=== PATIENT | male | born 1965 | race Caucasian/White ===

== ENCOUNTER 2019-03-14 08:19 | Outpatient (CLI) | payer OTHER ==
[~2019-03-14] VITALS: Ht 180.3 cm; Wt 108.9 kg
[2019-03-14] VITALS (17 sets, daily range): BP systolic 113–166; BP diastolic 66–98
[2019-03-14] MEDS ORDERED: LISI10TA2 PO (08:37)
[2019-03-14] MEDS ORDERED: ROPI0.5T PO (08:37)
[2019-03-14 08:44] LABS: BASO # 0.1 x10^3/uL (0.0-0.2); BASO % 1 % (0-3); EOS # 0.3 x10^3/uL (0.0-0.7); EOS % 5 % (0-3); HEMATOCRIT 50.9 % (39.0-53.0); HEMOGLOBIN 17.3 g/dL (13.0-17.5); LYMPH # 1.4 x10^3/uL (1.0-4.8); LYMPH % 22 % (24-48); MEAN CORPUSCULAR HEMOGLOBIN 31 pg (25-35); MEAN CORPUSCULAR HGB CONC 34 g/dL (31-37); MEAN CORPUSCULAR VOLUME 90 fL (79-100); MONO # 0.5 x10^3/uL (0.0-1.1); MONO % 8 % (0-9); NEUT # 4.3 x10^3uL (1.8-7.7); NEUT % 65 % (31-73); PLATELET COUNT 181 x10^3/uL (140-400); RED BLOOD COUNT 5.65 x10^6/uL (4.30-5.70); RED CELL DISTRIBUTION WIDTH 13.7 % (11.5-14.5); WHITE BLOOD COUNT 6.6 x10^3/uL (4.0-11.0)
[2019-03-14 08:54] LABS: PROTHROMBIN TIME PATIENT 12.6 SEC (11.7-14.0)
[2019-03-14] MEDS ORDERED: GELATIN SPONGE SIZE 12-7MM SPONGE. ONE (09:07)
[2019-03-14] MEDS ORDERED: LIDOCAINE WITH 8.4% SOD BICARB 3 ML DISP.SYRIN. ONE (09:07)
[2019-03-14] MEDS ORDERED: fentaNYL PF VIAL 100 MCG/2 ML VIAL ONE (09:22)
[2019-03-14] MEDS ORDERED: MIDAZOLAM HCL/PF 2 MG/2 ML VIAL. ONE (09:22)
[2019-03-14] MEDS ORDERED: MIDAZOLAM HCL/PF 2 MG/2 ML VIAL. IV ONE (09:45)
[2019-03-14] MEDS ORDERED: LIDOCAINE WITH 8.4% SOD BICARB 3 ML DISP.SYRIN. IJ ONE (09:45)
[2019-03-14] MEDS ORDERED: fentaNYL PF VIAL 100 MCG/2 ML VIAL IV ONE (09:45)
--- NOTE | 2019-03-14 09:56 | RAD ---
CT-guided left kidney biopsy. 03/14/2019 9:50 AM Indication: MICROSCOPIC HEMATURIA Discussion: The risks and benefits of the procedure, including but not limited to, bleeding and infection were discussed patient. Informed consent was obtained. The patient was brought to the CT scanner and placed in the prone position. A timeout procedure was performed. 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 The overlying soft tissues were prepped and draped using maximum sterile barrier technique. 1% lidocaine without epinephrine was administered for local anesthesia. Under intermittent CT guidance, 17-gauge needle was advanced into the posterior lateral left kidney. 2 18-gauge core samples were obtained and divided amongst formalin and Chad solution. Gelfoam embolization of the biopsy tract was performed as the guiding needle as it was removed. Manual pressure was held. Repeat CT imaging demonstrates expected post biopsy changes without significant hematoma or other immediate complication. Patient was transferred to the post recovery area in stable condition. The procedure was performed under conscious sedation including continuous cardiopulmonary monitoring via dedicated sedation nurse. [id number]-idez sedation time: 20 minutes Impression: CT-guided, left renal biopsy PQRS Compliance Statement: One or more of the following individualized dose reduction techniques were utilized for this examination: 1. Automated exposure control 2. Adjustment of the mA and/or kV according to patient size 3. Use of iterative reconstruction technique
--- NOTE | 2019-03-14 13:06 | NUR ---
Discharge Note: [place] Discharge instructions and discharge home medications reviewed with Patient and a copy given. All questions have been answered and understanding verbalized. The following instructions and handouts were given: moderate sedation,kidney biopsy, and surgical site infection Discontinued lines and drains: Peripheral IV intact. Patient discharged to Home or Self Care withSpousevia Ambulated
--- NOTE | 2019-03-17 18:05 | PATHOLOGY ---
[facility] Accession Number: [id number] . 01 Material submitted: . kidney - RENAL BIOPSY . 01 Clinician provided ICD-10: R31.29 . 01 Clinical history: . Microscopic hematuria . 02 Diagnosis: Special studies report received from [employer], [address] [place] [address], [address], [place] [address], on case [id number], labeled with their number [id number], dated 03/15/2019. . Specimen submitted: By Truman Mcarthur MD For Kidney, biopsy . DIAGNOSIS: . Medulla Only. See Comment. . Comment: The renal biopsy shows medulla only. No cortex or glomeruli are identified for interpretation. The biopsy is insufficient for evaluation. . Clinical History: The patient is a 53-year-old male who presents for follow-up of chronic kidney disease and hypertension. Physical examination reveals a blood pressure of 128/84 and BMI of 37. . Gross Description: Received from [facility] via [facility] are two foreign specimen bottles; one bottle contains formalin and the other contains Yosi's fixative. The bottles are labeled with the patient's name (Farhad Curry) and outside number ([id number]). . Received in formalin is one piece of barnett tissue measuring 0.7 x 0.1 x 0.1 cm (fatty ends, dissected). One piece is submitted for electron microscopy and the remainder of the tissue is submitted in its entirety for light microscopy. . Received in Yosi's fixative is one piece of red tissue measuring 0.5 x 0.1 x 0.1 cm (bloody, fatty ends). The specimen is submitted in its entirety for immunofluorescence microscopy. . Microscopic Description: . LIGHT MICROSCOPY: . Tissue submitted for light microscopic examination is represented by medulla only. No cortex or glomeruli are identified for interpretation. The single artery present shows moderate to severe intimal fibrosis. Congo red stain for amyloid is negative within the sampled medulla. Multiple PAS-positive hyaline casts are identified. No atypical casts are seen. Toluidine blue-stained sections for electron microscopy show medulla only. . Standard of care requirements for proper analysis of renal biopsies mandates serial sections, and PAS, Castillo silver, trichrome and SMMT stains at multiple levels. PAS stains are used to evaluate various aspects of the glomerular, tubular, and vascular basement membranes. Castillo silver stains are used to evaluate thickening, reduplication, "spiking" or "bubbling" of the glomerular basement membrane. Toluidine blue stained sections highlight glomerular basement membranes and demonstrates unusual types of deposits. It also reveals details of tubular epithelial cells and aids in the analysis of vascular lesions. Frankie trichrome stains are used to evaluate interstitial fibrosis and basement membrane deposits. The SMMT stain helps evaluate basement membrane changes, immune deposits and tubulointerstitial scarring. Controls are routinely run on all special stains and are verified for acceptability. A review of the technical quality of routine slides is made before results are reported. . IMMUNOFLUORESCENCE: The sections are stained for IgG, IgM, IgA, C3, C1q, albumin, fibrinogen, and kappa and lambda light chains. The tissue consists entirely of renal medulla and soft tissue. No glomeruli are present for evaluation. There is no significant staining within the medulla. Louisa and lambda stain equally throughout the tubulointerstitium. . Positive and negative controls are run on all immunofluorescent stains and are verified for acceptability before results are reported. Internal antigens serve as positive controls. . ELECTRON MICROSCOPY: One block is prepared. No intact glomeruli are available for ultrastructural examination. . Special procedures including immunofluorescence and electron microscopy correlate with the light microscopy findings. . Note: Some of the tests reported here may have been developed and performance characteristics determined by [facility]. They have not been cleared or approved by the U.S. Food and Drug Administration (FDA). The FDA does not require this test to go through premarket FDA review. This test is used for clinical purposes. It should not be regarded as investigational or for research. [facility] is certified under the Clinical Laboratory Improvement Amendments of 1988 (CLIA) as qualified to perform high complexity clinical laboratory testing. . Physician/Physician's office called on 03/15/2019 at 3:59 PM Central. . *I have reviewed the clinical history, the pertinent gross findings, all microscopic materials, discussed the case with the clinician when appropriate, and have rendered the final diagnosis. . . Final Diagnosis performed by Shaun Desir M.D. Electronically signed 03/15/2019 5:15:34 PM . . A complete copy of the report is on file. . Professional and technical services performed by [facility] at [address] [facility], [facility] [address], [place], [address]. . (FRANCIS:03/17/2019) QMS/03/17/2019 . 02 Electronically signed: . Martin Montilla MD, Pathologist NPI- [id number] . 01 Gross description: . The specimen is received in formalin, labeled "Patricio, Farhad, renal BX", consists of barnett to hemorrhagic needle cores. Also received is a vial of Yosi's solution, labeled with patient's name and "renal BX" that consists of barnett needle cores. The specimen is sent to, and the final report will be submitted from, the [employer]. ([facility]; 03/14/2019) [facility]S . 02 Pathologist provided ICD-10: R31.29 . 02 CPT . 190606 Specimen Comment: A courtesy copy of this report has been sent to Specimen Comment: [phone], . Specimen Comment: Report sent to / DR MCARTHUR Performed at: 01 [facility] [address], [place], [place] [id number] MD Ricco yLnn MD Phone: [phone] Performed at: 02 [facility] [address], [place] [id number] MD Martin Montilla MD Phone: [phone]
== END 2019-03-14 13:09 | disposition home or self-care (01) ==
LOC: INTRAD 08:19
PROVIDERS: ATTEND Internal Medicine Nephrology
DX: R31.29 Other microscopic hematuria (principal)
CPT/HCPCS: 36415; 50200; 77012; 85025; 85610; 85730; 88305; 99152; J2250; J3010; 99153

== ENCOUNTER 2019-07-11 08:25 | Outpatient (CLI) | payer OTHER ==
[2019-07-11] VITALS (16 sets, daily range): BP systolic 100–154; BP diastolic 60–107
[~2019-07-11] VITALS: Ht 180.3 cm; Wt 113.4 kg
[~2019-07-11 08:25] MED LIST: LISI10TA2 PO; ROPI0.5T PO
[2019-07-11 09:03] LABS: BASO # 0.1 x10^3/uL (0.0-0.2); BASO % 1 % (0-3); EOS # 0.3 x10^3/uL (0.0-0.7); EOS % 5 % (0-3); HEMATOCRIT 48.8 % (39.0-53.0); HEMOGLOBIN 16.5 g/dL (13.0-17.5); LYMPH # 1.3 x10^3/uL (1.0-4.8); LYMPH % 21 % (24-48); MEAN CORPUSCULAR HEMOGLOBIN 31 pg (25-35); MEAN CORPUSCULAR HGB CONC 34 g/dL (31-37); MEAN CORPUSCULAR VOLUME 92 fL (79-100); MONO # 0.5 x10^3/uL (0.0-1.1); MONO % 9 % (0-9); NEUT # 3.9 x10^3/uL (1.8-7.7); NEUT % 64 % (31-73); PLATELET COUNT 161 x10^3/uL (140-400); RED BLOOD COUNT 5.33 x10^6/uL (4.30-5.70); RED CELL DISTRIBUTION WIDTH 13.9 % (11.5-14.5)
[2019-07-11] MEDS ORDERED: LIDOCAINE WITH 8.4% SOD BICARB 3 ML DISP.SYRIN. ONE (09:50)
[2019-07-11] MEDS ORDERED: GELATIN SPONGE SIZE 12-7MM SPONGE. ONE (09:50)
[2019-07-11] MEDS ORDERED: MIDAZOLAM HCL/PF 5 MG/5 ML VIAL. ONE (09:55)
[2019-07-11] MEDS ORDERED: fentaNYL PF VIAL 250 MCG/5 ML VIAL ONE (09:55)
[2019-07-11] MEDS ORDERED: LIDOCAINE WITH 8.4% SOD BICARB 3 ML DISP.SYRIN. IJ ONE (10:15)
[2019-07-11] MEDS ORDERED: MIDAZOLAM HCL/PF 5 MG/5 ML VIAL. IV ONE (10:15)
[2019-07-11] MEDS ORDERED: fentaNYL PF VIAL 250 MCG/5 ML VIAL IV ONE (10:15)
[2019-07-11] MEDS ORDERED: GELATIN SPONGE SIZE 12-7MM SPONGE. TP ONE (10:30)
--- NOTE | 2019-07-11 13:50 | NUR ---
Discharge instructions and discharge home medications reviewed with Patient and a copy given. All questions have been answered and understanding verbalized. The following instructions and handouts were given on moderate sedation and post biopsy care. Discontinued PIV. Patient discharged to home with self care.
--- NOTE | 2019-07-11 13:57 | RAD ---
07/11/2019 11:51 AM Procedure: Ultrasound guided right renal biopsy Clinical Indication: CKD STAGE III Discussion: The procedure was explained in its entirety to the patient or the patients designated pharmaceutical specialty representative by a member of the treatment team, including a discussion of the risks, benefits and commonly accepted alternatives to the procedure, as well as the expected consequences of no therapy whatsoever. Discussion of the risks included, but was not limited to, those that are most frequent and those that are rare but possibly severe or life-threatening, as well as the possibility of unforeseen complications. All elements of maximal sterile barrier technique including the use of a cap, mask, sterile gown, sterile gloves, large sterile sheet, appropriate hand hygiene, and 2% chlorhexidine for cutaneous antisepsis (or acceptable alternative antiseptic per current guidelines) were followed for this procedure. The right kidney demonstrates mild renal cortical thinning. No acute abnormalities are seen. 1 % lidocaine was administered to the skin and subcutaneous tissues. A 17-gauge guiding needle was advanced into the upper inferior pole of the right kidney. Core biopsies were obtained and divided amongst formalin and Yosi's solution. Gelfoam position at the biopsy tract was performed as a guiding needle was removed. Manual pressure was held. Repeat ultrasound was performed after several minutes demonstrated no immediate complication. Expected postbiopsy changes noted. The procedure was performed under conscious sedation including continuous cardiopulmonary monitoring via dedicated sedation nurse. Nggk-tv-xyym sedation time: 30 minutes Impression: Ultrasound-guided biopsy, right kidney
--- NOTE | 2019-07-13 14:07 | PATHOLOGY ---
[facility] Accession Number: [id number] . 01 Material submitted: . kidney - RIGHT RENAL BIOPSY. Modifiers: right . 01 Clinical history: . CKD III . 02 Diagnosis: Special studies report received from [employer], [address] [place] [address], [facility] [address] [address], on case [id number], labeled with their number [id number], dated 07/12/2019. . Specimen submitted: By Yue Mcarthur MD For Kidney, biopsy . DIAGNOSIS: . Predominantly Medulla. See Comment. . Comment: The renal biopsy is comprised of predominantly medulla with scant corticomedullary junction tissue. No cortex or glomeruli are identified for interpretation. The biopsy is insufficient for evaluation. . Clinical History: The patient is a 53-year-old male presenting for evaluation of [id number] microscopic hematuria, hypertension, and chronic kidney disease. A kidney biopsy performed in April 2019 ([id number]) revealed medulla only. A repeat biopsy is performed. . Gross Description: Received from [facility] via [facility] are two specimen bottles; one bottle contains formalin and the other contains Yosi's fixative. The bottles are labeled with the patient's name (Farhad Curry) and date of (1965). Per the submitted paperwork, the outside number is [id number]. . Received in formalin are two pieces of barnett tissue measuring 0.7 x 0.1 x 0.1 cm (fatty ends) and 0.9 x 0.1 x 0.1 cm (fatty ends and middle)-both bisected. Two pieces are submitted for electron microscopy and the remainder of the tissue is submitted in its entirety for light microscopy. . Received in Yosi's fixative are two pieces of bloody tissue measuring 0.5 x 0.1 x 0.1 cm and 0.8 x 0.1 x 0.1 cm. The specimen is submitted in its entirety for immunofluorescence microscopy. . Microscopic Description: . LIGHT MICROSCOPY: . Tissue submitted for light microscopic examination is represented by predominantly medulla with scant corticomedullary junction tissue. No cortex or glomeruli are identified for evaluation. The sampled blood vessels exhibit no significant intimal fibrosis. Toluidine blue-stained sections show no cortex or glomeruli. . Material from the patient's previous biopsy ([id number]) was reviewed concurrently. . Standard of care requirements for proper analysis of renal biopsies mandates serial sections, and PAS, Castillo silver, trichrome and SMMT stains at multiple levels. PAS stains are used to evaluate various aspects of the glomerular, tubular, and vascular basement membranes. Castillo silver stains are used to evaluate thickening, reduplication, "spiking" or "bubbling" of the glomerular basement membrane. Toluidine blue stained sections highlight glomerular basement membranes and demonstrates unusual types of deposits. It also reveals details of tubular epithelial cells and aids in the analysis of vascular lesions. Frankie trichrome stains are used to evaluate interstitial fibrosis and basement membrane deposits. The SMMT stain helps evaluate basement membrane changes, immune deposits and tubulointerstitial scarring. Controls are routinely run on all special stains and are verified for acceptability. A review of the technical quality of routine slides is made before results are reported. . . IMMUNOFLUORESCENCE: The sections are stained for IgG, IgM, IgA, C3, C1q, albumin, fibrinogen, and kappa and lambda light chains. The tissue consists entirely of renal medulla. No glomeruli are present for evaluation. There is no significant staining within the medulla. Lavinia and lambda stain equally throughout the tubulointerstitium. . Positive and negative controls are run on all immunofluorescent stains and are verified for acceptability before results are reported. Internal antigens serve as positive controls. . ELECTRON MICROSCOPY: Two blocks are prepared. No intact glomeruli are available for ultrastructural examination. . Special procedures including immunofluorescence and electron microscopy correlate with the light microscopy findings. . Note: Some of the tests reported here may have been developed and performance characteristics determined by [employer] [facility] [employer]. They have not been cleared or approved by the U.S. Food and Drug Administration (FDA). The FDA does not require this test to go through premarket FDA review. This test is used for clinical purposes. It should not be regarded as investigational or for research. [employer] [facility] [employer] is certified under the Clinical Laboratory Improvement Amendments of 1988 (CLIA) as qualified to perform high complexity clinical laboratory testing. . Physician/Physician's office called on 07/12/2019 at 3:47 PM Central. . *I have reviewed the clinical history, the pertinent gross findings, all microscopic materials, discussed the case with the clinician when appropriate, and have rendered the final diagnosis. . . Final Diagnosis performed by Shaun Desir M.D. Electronically signed 07/12/2019 5:34:43 PM . A complete copy of the report is on file. . Professional and technical services performed by [facility] [facility] [employer] at [address] [place] [address], [facility] [address], [place], [address]. . (JPM:amj 07/13/2019) . AZJ 07/13/2019 1002 Local . 02 Electronically signed: . Martin Montilla MD, Pathologist NPI- [id number] . 01 Gross description: . The specimen is received in formalin, labeled "Patricio, Farhad, right renal tissue", consist of two barnett needle cores. Also received is a vial of Chad solution, labeled with patient name and "right renal tissue" that consist of two barnett needle cores. The specimen is sent to, and the final report will be submitted from, the [employer]. ([facility]; 07/11/2019) [facility] 07/11/2019 1827 Local . 02 Pathologist provided ICD-10: N18.3 . 02 CPT . 988352 Specimen Comment: A courtesy copy of this report has been sent to Specimen Comment: [phone], . Specimen Comment: Report sent to / DR MCARTHUR Performed at: 01 [facility] [address] [facility] [address], [place], [place] [id number] MD Ricco Lynn MD Phone: [phone] Performed at: 02 [facility] [address] [place], [place] [id number] MD Martin Montilla MD Phone: [phone]
== END 2019-07-11 13:51 | disposition home or self-care (01) ==
LOC: INTRAD 08:25
PROVIDERS: ATTEND Internal Medicine Nephrology
DX: I12.9 Hypertensive chronic kidney disease with stage 1 through stage 4 chronic kidney disease, or unspecified chronic kidney disease (principal); N18.3 Chronic kidney disease, stage 3 (moderate); R31.29 Other microscopic hematuria
CPT/HCPCS: 36415; 50200; 76942; 85025; 85610; 85730; 88305; J2250; J3010; 99152